=== PATIENT | female | born 1970 | race Caucasian/White ===

== ENCOUNTER 2016-08-24 05:41 | Emergency (ER) | payer BC, OTHER ==
[~2016-08-24] VITALS: Ht 167.6 cm; Wt 66.3 kg
[~2016-08-24 05:41] MED LIST: ATEN50TA PO; ESTR1TAB PO; IBUP800T23 PO; MOBI15TA PO; ORPH100T99 PO; ULTR50TA5 PO
[2016-08-24 05:48] VITALS: BP 119/80; PULSE 77; RESP 16; TEMP 98.6; O2SAT 100
[2016-08-24] MEDS ORDERED: SODIUM CHLORIDE 0.9% FLUSH 5 ML FLUSH IVF PRN (06:30)
[2016-08-24] MEDS ORDERED: DOXY100C PO (06:46)
[2016-08-24] MEDS ORDERED: BACT800T5 PO (06:46)
--- NOTE | 2016-08-24 06:46 | PD ---
HPI Chief Complaint: Cold / Flu Symptoms Time Seen by Provider: 06:27 Travel History International Travel<30 days: No Contact w/Intl Traveler<30days: No Traveled to known affect area: No History of Present Illness HPI The patient is a 45-year-old female that complains of cough and rhinorrhea for 2 days. She also has laryngitis with a deep voice. The cough is nonproductive. The patient smokes one pack a day. She denies any fever. She has a minimal sore throat. One of her main complaints is a pimple inside her left nares. She has been digitally manipulating her nose and believes it started from her fingernail. She does not have a history of diabetes. She states she has been putting warm compresses to the nose. PFSH Past Medical History Arthritis: Yes (HANDS) Anxiety: Yes Depression: Yes Heart Rhythm Problems: Yes (pt states "I have a hole in my heart") Cancer: No Cardiovascular Problems: No Diminished Hearing: No Endocrine: Yes (TAKES ESTRIDOL) Hypertension: Yes Implanted Vascular Access Dvce: No Kidney Stones: Yes Musculoskeletal: Yes (HERNIATED DISC; UPPER BACK AND NECK MUSCLE PROBLEMS) Psychiatric: Yes Reproductive: Yes Respiratory: No Immunizations Current: Yes Migraines: Yes Tetanus Vaccination: Unknown Influenza Vaccination: No ?: Not Ovarian Cysts: Yes (2006) Past Surgical History Abdominal Surgery: Yes (HERNIA REPAIR) Section: Yes (x3) Gynecologic Surgery: Yes (C- SECTIONS, TOTAL HYSTERRECTOMY ) Hysterectomy: Yes Thoracic Surgery: No Social History Alcohol Use: Yes (COUPLE TIMES PER WEEK) Tobacco Use: Yes (1 ppd) Substance Use: No Allergies-Medications (Allergen,Severity, Reaction): Coded Allergies: No Known Allergies (Verified , 08/24/16) Reported Meds & Prescriptions Reported Meds & Active Scripts Active Ultram (Tramadol HCl) 50 Mg Tab 50 Mg PO Q6H PRN Reported Ibuprofen 800 Mg Tab 800 Mg PO Q8H PRN Estradiol 1 Mg Tab 1 Mg PO DAILY Atenolol 50 Mg Tab 50 Mg PO DAILY Review of Systems Except as stated in HPI: all other systems reviewed are Neg Physical Exam Narrative GENERAL: The patient is alert, oriented 3 in no respiratory distress. Her vital signs are normal. SKIN: Warm and dry. HEAD: Atraumatic. Normocephalic. EYES: Pupils equal and round. No scleral icterus. No injection or drainage. ENT: No nasal bleeding or discharge. Mucous membranes pink and moist. The tympanic membranes are clear. The throat shows no erythema, exudate nor abscess. The nose shows a small pustule, not drainable within the nares. There is what appears to be induration, possible early abscess in the left nares with only 1 cm diameter of erythema/cellulitis present. NECK: Trachea midline. No JVD. CARDIOVASCULAR: Regular rate and rhythm. No murmur appreciated. RESPIRATORY: No accessory muscle use. Clear to auscultation. Breath sounds equal bilaterally. GASTROINTESTINAL: Abdomen soft, non-tender, nondistended. Hepatic and splenic margins not palpable. MUSCULOSKELETAL: No obvious deformities. No clubbing. No cyanosis. No edema. NEUROLOGICAL: Awake and alert. No obvious cranial nerve deficits. Motor grossly within normal limits. Normal speech. PSYCHIATRIC: Appropriate mood and affect; insight and judgment normal. Data Data Last Documented VS Vital Signs Date Time Temp Pulse Resp B/P Pulse Ox O2 Delivery O2 Flow Rate FiO2 08/24/16 05:58 Room Air 08/24/16 05:48 98.6 77 16 119/80 100 Orders Influenzae A/B Antigen (08/24/16 06:28) Sodium Chloride 0.9% Flush (Ns Flush) (08/24/16 06:30) MDM Medical Decision Making Medical Screen Exam Complete: Yes Emergency Medical Condition: Yes Medical Record Reviewed: Yes Differential Diagnosis Otitis media, otitis externa, pharyngitis, bronchitis, pneumonia, viral upper respiratory infection, staph infection left nares, cellulitis left nares, drainable abscess left nares Narrative Course The patient appears to have an early abscess from the left nares. It is not drainable at this time. Plan: She will be put on antistaphylococcal drugsdoxycycline and Septra. She will continue to use warm compresses 30 minutes 3 times daily. Diagnosis Primary Impression: Staphylococcus infection of nose Additional Impression: Viral upper respiratory infection Additional Instructions: Continue to use warm compresses around the left nostril 30 minutes, 3 times daily. The antibiotics are both taken twice daily for 10 days. At this time this infection is not ready to drain. These infections often form a pimple and drained themselves. Med/Other Pt SpecificInfo: Prescription(s) given Scripts Sulfamethoxazole-Trimethoprim (Bactrim DS)800-160 Mg Tab1 Tab PO BID #20 TAB Ref 0 Prov:Talha Hardin MD 08/24/16 Doxycycline Hyclate 100 Mg [id number] Mg PO BID #20 CAP Ref 0 Prov:Talha Hardin MD 08/24/16 Disposition: 01 DISCHARGE HOME Condition: Stable Talha Hardin MD Aug 24, 2016 06:46
[2016-08-24] MEDS ORDERED: DOXYCYCLINE HYCLATE 100 MG TAB PO ONE (07:00)
[2016-08-24] MEDS ORDERED: DOXYCYCLINE HYCLATE 100 MG CAP PO ONE (07:00)
[2016-08-24] MEDS ORDERED: SULFAMETHOXAZOLE-TRIMETHOPRIM DS 800-160 MG TAB PO ONE (07:00)
[2016-08-24] MEDS ORDERED: DIFL150T PO (07:07)
== END 2016-08-24 07:11 | disposition home or self-care (01) ==
LOC: PHED 05:41
DX: B95.8 Unspecified staphylococcus as the cause of diseases classified elsewhere (principal); J06.9 Acute upper respiratory infection, unspecified; I10 Essential (primary) hypertension; F17.210 Nicotine dependence, cigarettes, uncomplicated; J02.9 Acute pharyngitis, unspecified
CPT/HCPCS: 87804; 99283